=== PATIENT | female | born 1995 | race Caucasian/White ===

== ENCOUNTER 2020-02-04 20:59 | Emergency (ER) | payer OTHER ==
[~2020-02-04] VITALS: Ht 160 cm; Wt 50.0 kg
[2020-02-04 21:11] VITALS: BP 132/86
--- NOTE | 2020-02-04 21:19 | PHYS DOC ---
Past Medical History Attending Signature I have participated in the care of this patient and I have reviewed and agree with all pertinent clinical information above including history, exam, and recommendations. (FRANKI LUTZ MD) Adult General Chief Complaint Chief Complaint: LACERATION/AVULSION [facility] Patient is a 24 year old female who presents with laceration to the right first digit toward the distal end. The patient was at work and cut it on a dish. Her tetanus shot is not up-to-date. Denies any other symptoms. Complete ROS were reviewed and found to be within normal limits, except as documented in the HPI (ELENA HINES APRN) Current Medications Current Medications Current Medications Medications (Trade) Dose Ordered Sig/Vinny Start Time Stop Time Status Last Admin Dose Admin Diphtheria/ Tetanus/Acell Pertussis (ADACEL TDap SYRINGE) 0.5 ml ONCE ONCE 02/04/20 22:00 02/04/20 21:43 DC 02/04/20 21:35 0.5 ML (FRANKI LUTZ MD) Allergies Allergies Allergies Coded Allergies Type Severity Reaction Last Updated Verified No Known Drug Allergies 02/04/20 No (FRANKI LUTZ MD) Physical Exam Physical Exam Constitutional: Well developed, well nourished, no acute distress, non-toxic appearance. [] Skin: <1.0 cm laceration to the distal finger approximated together. Neurologic: Alert and oriented X 3, normal motor function, normal sensory function, no focal deficits noted. [] Psychologic: Affect normal, judgement normal, mood normal. [] (ELENA HINES APRN) Current Patient Data Vital Signs Vital Signs Date Time Temp Pulse Resp B/P (MAP) Pulse Ox O2 Delivery O2 Flow Rate FiO2 02/04/20 21:11 98.6 82 18 132/86 (101) 100 Room Air 98.6 (FRANKI LUTZ MD) EKG EKG [] (ELENA HINES APRN) Radiology/Procedures Radiology/Procedures [] (ELENA HINES APRN) Course & Med Decision Making Course & Med Decision Making Pertinent Labs and Imaging studies reviewed. (See chart for details) We repaired the patient's laceration with Dermabond. Discussed with patient that the Dermabond will dissolve on its own. Before placing the Dermabond, I irrigated with 210 mL of normal saline. Also updated the Tetanus status. (ELENA HINES APRN) Dragon Disclaimer Dragon Disclaimer This electronic medical record was generated, in whole or in part, using a voice recognition dictation system. (ELENA HINES APRN) Departure Departure Impression: Primary Impression: Laceration Disposition: 01 HOME, SELF-CARE Condition: STABLE Referrals: NO PCP (PCP) Patient Instructions: Laceration Care, Adult Additional Instructions: Thank you for visiting [facility]. We appreciate you trusting us with your care. If any additional problems come up don't hesitate to return to visit us. Please follow up with your primary care provider so they can plan additional care if needed and know about the problem that you had. If symptoms worsen come back to the Emergency Department. Any concerning symptoms that start such as chest pain, shortness of air, weakness or numbness on one side of the body, running high fevers or any other concerning symptoms return to the ER. ELENA HINES APRN Feb 04, 2020 21:19 FRANKI LUTZ MD Feb 05, 2020 21:38
[2020-02-04] MEDS ORDERED: DIPH,PERTUSS(ACELL),TET VAC/PF 0.5 ML SYRINGE. VAX IM ONE (22:00)
== END 2020-02-04 21:43 | disposition home or self-care (01) ==
LOC: ER 20:59
DX: S61.216A Laceration without foreign body of right little finger without damage to nail, initial encounter (principal); Y28.8XXA Contact with other sharp object, undetermined intent, initial encounter; Y93.G1 Activity, food preparation and clean up; Y92.89 Other specified places as the place of occurrence of the external cause; Y99.8 Other external cause status
CPT/HCPCS: 12001; 90471; 90715; 99283